=== PATIENT | male | born 1950 | race Caucasian/White ===

== ENCOUNTER 2018-08-19 03:54 | Emergency (ER) | payer BC, MEDICARE ==
[2018-08-19 05:02] LABS: Bilirubin Negative (Negative); Blood, Urine Negative (Negative); Clarity CLEAR (Clear); Glucose, Urine (Dipstick) Negative (Negative); Leukocyte Negative (Negative); Nitrite Negative (Negative); Protein, Urine (Dipstick) Negative (Neg-Trace); Specific Gravity, Urine 1.018 (1.002-1.036); Urobilinogen 0.2 mg/dL (0.2-1.0)
[2018-08-19 05:02] LABS: ALT (SGPT) 16 U/L (8-55); AST (SGOT) 20 U/L (5-34); Albumin 3.8 g/dL (3.4-4.8); Alkaline Phosphatase 67 U/L (40-150); Anion Gap 15 mmol/L (10-20); BUN (Urea Nitrogen) 25 mg/dL (8.4-25.7); Bilirubin, Total 0.4 mg/dL (0.2-1.2); Calc. Creatinine Clearance 0 mL/min (70-130); Carbon Dioxide 22 mmol/L (23-31); Chloride 108 mmol/L (98-107); Estimated GFR-MDRD 60; Globulin 3.1 g/dL (2.4-3.5); Glucose 155 mg/dL (80-115); Potassium 4.5 mmol/L (3.5-5.1); Protein, Total 6.9 g/dL (5.8-8.1); Sodium 140 mmol/L (136-145)
[2018-08-19 05:17] LABS: #Eosinphils 0.1 thou/uL (0.0-0.7); #Lymphocytes 1.8 thou/uL (1.20-3.40); #Monocytes 0.2 thou/uL (0.11-0.59); #Neutrophils 6.8 thou/uL (1.40-6.50); %Basophils 0.4 % (0.0-1.0); %Eosinophils 1.5 % (0.0-10.0); %Lymphocytes 20.3 % (21.0-51.0); %Neutrophils 75.8 % (42.0-75.0); Hemoglobin 15.1 g/dL (14.0-18.0); Mean Corpuscular Hemoglobin 29.2 pg (27.0-31.0); Mean Corpuscular Volume 91.4 fL (78.0-98.0); Mean Platelet Volume 8.2 fL (7.4-10.4); Platelet Count 269 thou/uL (130-400); RBC Distribution Width 12.7 % (11.5-14.5); Red Blood Cell (RBC) Count 5.18 mill/uL (4.70-6.10)
[2018-08-19 05:21] LABS: CKMB 2.4 ng/mL (0-6.6); Troponin I Less than 0.010 ng/mL (< 0.028)
[2018-08-19] MEDS ORDERED: Morphine 4 MG/ML VIAL ONE (05:33)
[2018-08-19] MEDS ORDERED: Ondansetron PF 4 MG/2 ML Vial ONE (05:33)
[2018-08-19] MEDS ORDERED: Ketorolac Tromethamine 30 MG/ML VIAL ONE (07:28)
--- NOTE | 2018-08-19 08:34 | CT ---
CT ABDOMEN AND PELVIS WITH IV CONTRAST: Date: 08/19/18 Multiple axial tomograms are obtained through the abdomen and pelvis with IV enhancement. INDICATION: Bilateral flank pain. FINDINGS: Lung bases clear. Liver, spleen, and pancreas appear unremarkable. Adrenal glands appear normal. Review of kidneys show no evidence of hydronephrosis. Ureters are normal caliber. There is loss of cortical enhancement involving the medial cortex of the upper pole left kidney. This asymmetry could represent an area of pyelonephritis. There is no evidence of focal mass or abscess a t this location. There is a small cyst in the superior left kidney measuring approximately 1.0 cm located laterally. Kidneys otherwise unremarkable. Urinary bladder unremarkable. Small bowel loops normal caliber. Diverticulosis of the left colon without definite CT evidence of di verticulitis. Aorta normal caliber. IMPRESSION: Asymmetric enhancement in medial aspect upper pole left kidney. Pyelonephritis is a consideration. Re commend clinical correlation and follow-up. POS: [facility]
[2018-08-19] MEDS ORDERED: traMADol HCl 50 MG TAB ONE (09:37)
[2018-08-19] MEDS ORDERED: ISOVUE-370 76%-LOCM 1 ML ONE (10:48)
--- NOTE | 2018-08-19 11:54 | EKG ---
Test Reason : Blood Pressure : / mmHG Vent. Rate : 063 BPM Atrial Rate : 063 BPM P-R Int : 178 ms QRS Dur : 078 ms QT Int : 428 ms P-R-T Axes : 037 -06 033 degrees QTc Int : 437 ms Normal sinus rhythm Normal ECG Confirmed by BETTIE MONDRAGON DO ([id number]), manuscript editor SHOAIB JENSEN ([id number]) on 08/19/2018 11:54:13 AM Referred By: Confirmed By:BETTIE MONDRAGON DO
== END 2018-08-19 09:43 | disposition home or self-care (01) ==
LOC: ERS 03:54
DX: M54.9 Dorsalgia, unspecified (principal); I10 Essential (primary) hypertension; E78.00 Pure hypercholesterolemia, unspecified; Z79.899 Other long term (current) drug therapy
CPT/HCPCS: 36415; 74177; 80053; 81003; 82553; 84484; 85025; 87086; 93005; 96361; 96374; 96375; J1885; J2270; J2405

== ENCOUNTER 2018-12-07 18:00 | Outpatient (CLI) | payer BC, MEDICARE | END 2018-12-07 18:01 | disposition home or self-care (01) | LOC: SLEEPLAB 18:00 | DX: G47.33 Obstructive sleep apnea (adult) (pediatric) (principal); R06.83 Snoring; I10 Essential (primary) hypertension; E66.9 Obesity, unspecified; G47.9 Sleep disorder, unspecified; Z68.30 Body mass index [BMI] 30.0-30.9, adult | CPT/HCPCS: 95806 ==

== ENCOUNTER 2018-12-26 20:30 | Outpatient (CLI) | payer BC, MEDICARE | END 2018-12-26 20:31 | disposition home or self-care (01) | LOC: SLEEPLAB 20:30 | PROVIDERS: ATTEND Internal Medicine | DX: G47.33 Obstructive sleep apnea (adult) (pediatric) (principal) | CPT/HCPCS: 95811 ==